=== PATIENT | male | born 1995 | race Caucasian/White ===

== ENCOUNTER 2019-12-16 12:52 | Inpatient (IN) | payer OTHER ==
[2019-12-16] MEDS ORDERED: Ondansetron 4 MG Tab.DIS PO ONE (13:12)
--- NOTE | 2019-12-16 13:34 | EDM.PDOCBH ---
ED HPI GENERAL MEDICAL PROBLEM - General Chief Complaint: Behavioral/Psych Stated Complaint: [facility] Time Seen by Provider: 12/16/19 13:01 Source of Information: Reports: Patient, EMS History Limitations: Reports: No Limitations - History of Present Illness INITIAL COMMENTS - FREE TEXT/NARRATIVE: The patient presents by [facility] for an overdose. The patient got into a fight with his girlfriend and he said he was being dramatic and took some ibuprofen. He thinks he took about 10 to 15 pills. He denies trying to commit suicide. He knows ibuprofen in that amount does not kill you. It will just upset your stomach. He did try this about 6 months ago. He has been depressed lately. He is not on any medications and he admits that if he were prescribed anything he may not take it. He is admit to being defiant. He has a daughter with his girlfriend and she is . He has no other complaints such as fever, chills, cough, congestion, runny nose, chest pain, abdominal pain , nausea and vomiting. Onset: Sudden Duration: Minutes: Severity: Moderate Improves with: Reports: None Worsens with: Reports: None Associated Symptoms: Reports: No Other Symptoms - Related Data Allergies Allergy/AdvReac Type Severity Reaction Status Date / Time No Known Allergies Allergy Verified 12/16/19 13:01 Home Meds: Home Meds . [No Known Home Meds] 12/16/19 [History] Past Medical History - Past Health History Medical/Surgical History: Denies Medical/Surgical History Psychiatric History: Reports: Depression Social & Family History - Tobacco Use Smoking Status *Q: Current Some Day Smoker Years of Tobacco use: 5 Packs/Tins Daily: 0.1 - Recreational Drug Use Recreational Drug Use: Yes Recreational Drug Type: Reports: Marijuana/Hashish Recreational Drug Use Frequency: Socially ED ROS GENERAL - Review of Systems Review Of Systems: See Below Constitutional: Reports: No Symptoms HEENT: Reports: No Symptoms Respiratory: Reports: No Symptoms Cardiovascular: Reports: No Symptoms Endocrine: Reports: No Symptoms GI/Abdominal: Reports: No Symptoms : Reports: No Symptoms Musculoskeletal: Reports: No Symptoms ED EXAM, BEHAVIORAL HEALTH - Physical Exam Exam: See Below Exam Limited By: No Limitations General Appearance: Alert, No Apparent Distress Ears: Normal External Exam Nose: Normal Inspection Head: Atraumatic, Normocephalic Neck: Normal Inspection Respiratory/Chest: No Respiratory Distress, Lungs Clear, Normal Breath Sounds Cardiovascular: Regular Rate, Rhythm, No Edema, No Murmur GI/Abdominal: Soft, Non-Tender, No Organomegaly, No Mass Back Exam: Normal Inspection Extremities: Normal Inspection COURSE, BEHAVIORAL HEALTH COMP - Course Vital Signs: Last Vital Signs Temp 97.6 F 12/16/19 13:01 Pulse 92 12/16/19 13:01 Resp 16 12/16/19 13:01 BP 124/75 12/16/19 13:01 Pulse Ox 100 12/16/19 13:01 Orders, Labs, Meds: Active Orders 24 hr Category Date Time Status Cardiac Monitoring [RC] . DIRECTED Care 12/16/19 13:09 Active Peripheral IV Care [RC] . DIRECTED Care 12/16/19 13:58 Active RT Aerosol Therapy [RC] ASDIRECTED Care 12/16/19 17:05 Active Sodium Chloride 0.9% [Saline Flush] Med 12/16/19 13:58 Active 10 ml FLUSH ASDIRECTED PRN Peripheral IV Insertion Adult [OM.PC] Routine Oth 12/16/19 13:58 Ordered Medication Orders Sodium Chloride (Saline Flush) 10 ml FLUSH ASDIRECTED PRN PRN Reason: Keep Vein Open Last Admin: 12/16/19 14:20 Dose: 10 ml Laboratory Tests 12/16/19 12/16/19 12/16/19 Range/Units 13:20 13:20 13:20 WBC 5.90 (4.23-9.07) K/mm3 RBC 5.31 (4.63-6.08) M/mm3 Hgb 15.7 (13.7-17.5) gm/dl Hct 44.8 (40.1-51.0) % MCV 84.4 (79.0-92.2) fl MCH 29.6 (25.7-32.2) pg MCHC 35.0 (32.2-35.5) g/dl RDW Std Deviation 40.9 (35.1-43.9) fL Plt Count 211 (163-337) K/mm3 MPV 9.0 L (9.4-12.3) fl Neut % (Auto) 37.8 (34.0-67.9) % Lymph % (Auto) 46.9 (21.8-53.1) % [place] % (Auto) 10.2 (5.3-12.2) % Eos % (Auto) 3.9 (0.8-7.0) Baso % (Auto) 1.0 (0.1-1.2) % Neut # (Auto) 2.23 (1.78-5.38) K/mm3 Lymph # (Auto) 2.77 (1.32-3.57) K/mm3 [place] # (Auto) 0.60 (0.30-0.82) K/mm3 Eos # (Auto) 0.23 (0.04-0.54) K/mm3 Baso # (Auto) 0.06 (0.01-0.08) K/mm3 PT (9.7-12.0) SECONDS INR APTT (22-31) SECONDS Sodium 140 (136-145) mEq/L Potassium 3.7 (3.5-5.1) mEq/L Chloride 104 (98-107) mEq/L Carbon Dioxide 26 (21-32) mEq/L Anion Gap 13.7 (5-15) BUN 12 (7-18) mg/dL Creatinine 1.1 (0.7-1.3) mg/dL Est Cr Clr Drug Dosing 99.65 mL/min Estimated GFR (MDRD) > 60 (>60) mL/min BUN/Creatinine Ratio 10.9 L (14-18) Glucose 144 H (74-106) mg/dL Calcium 9.0 (8.5-10.1) mg/dL Total Bilirubin 0.6 (0.2-1.0) mg/dL AST 12 L (15-37) U/L ALT 29 (16-63) U/L Alkaline Phosphatase 57 (46-116) U/L Total Protein 7.2 (6.4-8.2) g/dl Albumin 4.0 (3.4-5.0) g/dl Globulin 3.2 gm/dL Albumin/Globulin Ratio 1.3 (1-2) TSH 3rd Generation 1.536 (0.358-3.74) uIU/mL Salicylates 3.0 (2.8-20) mg/dL Urine Opiates Screen (CNXELX=321) Ur Buprenorphine Scrn (CUTOFF=10) Ur Oxycodone Screen (IMR6RT=584) Urine Methadone Screen (HLR4QN=932) Ur Propoxyphene Screen (FYRKSK=291) Acetaminophen 334 H* (10-30) ug/mL Ur Barbiturates Screen (JMRUUW=669) Ur Tricyclics Screen (JZGJXV=603) Ur Phencyclidine Scrn (CUTOFF=25) Ur Amphetamine Screen (SROTNG=587) U Methamphetamines Scrn (CBNUQE=405) U Benzodiazepines Scrn (XKIJHN=345) U Cocaine Metab Screen (PDKUCZ=857) U Marijuana (THC) Screen (CUTOFF=50) Ethyl Alcohol 0.00 (0.00) gm% 12/16/19 12/16/19 12/16/19 Range/Units 13:50 15:06 16:23 WBC (4.23-9.07) K/mm3 RBC (4.63-6.08) M/mm3 Hgb (13.7-17.5) gm/dl Hct (40.1-51.0) % MCV (79.0-92.2) fl MCH (25.7-32.2) pg MCHC (32.2-35.5) g/dl RDW Std Deviation (35.1-43.9) fL Plt Count (163-337) K/mm3 MPV (9.4-12.3) fl Neut % (Auto) (34.0-67.9) % Lymph % (Auto) (21.8-53.1) % Hopkins % (Auto) (5.3-12.2) % Eos % (Auto) (0.8-7.0) Baso % (Auto) (0.1-1.2) % Neut # (Auto) (1.78-5.38) K/mm3 Lymph # (Auto) (1.32-3.57) K/mm3 Hopkins # (Auto) (0.30-0.82) K/mm3 Eos # (Auto) (0.04-0.54) K/mm3 Baso # (Auto) (0.01-0.08) K/mm3 PT 11.5 (9.7-12.0) SECONDS INR 1.06 APTT 25 (22-31) SECONDS Sodium (136-145) mEq/L Potassium (3.5-5.1) mEq/L Chloride (98-107) mEq/L Carbon Dioxide (21-32) mEq/L Anion Gap (5-15) BUN (7-18) mg/dL Creatinine (0.7-1.3) mg/dL Est Cr Clr Drug Dosing mL/min Estimated GFR (MDRD) (>60) mL/min BUN/Creatinine Ratio (14-18) Glucose (74-106) mg/dL Calcium (8.5-10.1) mg/dL Total Bilirubin (0.2-1.0) mg/dL AST (15-37) U/L ALT (16-63) U/L Alkaline Phosphatase (46-116) U/L Total Protein (6.4-8.2) g/dl Albumin (3.4-5.0) g/dl Globulin gm/dL Albumin/Globulin Ratio (1-2) TSH 3rd Generation (0.358-3.74) uIU/mL Salicylates (2.8-20) mg/dL Urine Opiates Screen Negative (YIWLMC=729) Ur Buprenorphine Scrn Negative (CUTOFF=10) Ur Oxycodone Screen Negative (IOO2YR=250) Urine Methadone Screen Negative (PRV3GS=525) Ur Propoxyphene Screen Negative (DESWOW=755) Acetaminophen 258 H* (10-30) ug/mL Ur Barbiturates Screen Negative (CUIWIU=822) Ur Tricyclics Screen Negative (XZNQVA=443) Ur Phencyclidine Scrn Negative (CUTOFF=25) Ur Amphetamine Screen Negative (CYHJUY=959) U Methamphetamines Scrn Negative (AIMLIR=289) U Benzodiazepines Scrn Negative (VMRRBD=563) U Cocaine Metab Screen Negative (MGOWIG=242) U Marijuana (THC) Screen Presumptive positive H (CUTOFF=50) Ethyl Alcohol (0.00) gm% Medications Generic Name Dose Route Start Last Admin Trade Name Freq PRN Reason Stop Dose Admin Sodium Chloride 10 ml 12/16/19 13:58 12/16/19 14:20 Saline Flush FLUSH 10 ml ASDIRECTED PRN Administration Keep Vein Open Discontinued Medications Generic Name Dose Route Start Last Admin Trade Name Freq PRN Reason Stop Dose Admin Acetylcysteine 10,200 mg 12/16/19 17:03 Acetadote 20% IV 12/16/19 17:04 ONETIME ONE Acetylcysteine 9,520 mg 12/16/19 17:05 Mucomyst 20% PO 12/16/19 17:06 ONETIME ONE Lactated Ringer's 1,000 mls @ 1,000 mls/hr 12/16/19 14:02 12/16/19 14:19 Ringers, Lactated IV 12/16/19 15:01 1,000 mls/hr .BOLUS ONE Administration Metoclopramide HCl 10 mg 12/16/19 14:13 12/16/19 14:19 Reglan IVPUSH 12/16/19 14:14 10 mg ONETIME ONE Administration Ondansetron HCl 4 mg 12/16/19 13:12 12/16/19 13:17 Zofran Odt PO 12/16/19 13:13 4 mg ONETIME ONE Administration Ondansetron HCl 4 mg 12/16/19 18:05 Zofran IVPUSH 12/16/19 18:06 ONETIME ONE Re-Assessment/Re-Exam: I ordered labs and a UDS. After I left the room and got nauseated and vomited. I ordered some zofran 4mg ODT PO. His CBC looks good. His blood sugar is 144. His TSH is normal. His salicylates are normal. His ETOH is 0. His acetaminophen is elevated at 334. I asked the patient again what he took and he thought it was ibuprofen. It obviously is not. I called poison control and they still wanted me to wait 4 hours from ingestion and get an acetaminophen level and then treat if it is greater then 150. The patient had more nausea and vomiting so I ordered reglan 10mg IV. His repeat acetaminophen level was 258. I called poison control back an they wanted me to start treating him. I called Dr Escobedo and he agreed to the admission. I ordered mucomyst 140mg PO. Departure - Departure Time of Disposition: 18:10 Disposition: Admitted As Inpatient 66 Condition: Serious Clinical Impression: Acetaminophen overdose Qualifiers: Encounter type: initial encounter Injury intent: intentional self-harm Qualified Code(s): T39.1X2A - Poisoning by 4-Aminophenol derivatives, intentional self-harm, initial encounter - Discharge Information Referrals: PCP,None [Primary Care Provider] - Forms: ED Department Discharge Sepsis Event Note - Evaluation Sepsis Screening Result: No Definite Risk - Focused Exam Vital Signs: Vital Signs Temp Pulse Resp BP Pulse Ox 12/16/19 13:01 97.6 F 92 16 124/75 100 Date Exam was Performed: 12/16/19 Time Exam was Performed: 18:09 - My Orders Last 24 Hours: My Active Orders 12/16/19 13:09 Cardiac Monitoring [RC] . DIRECTED 12/16/19 13:58 Peripheral IV Care [RC] . DIRECTED Sodium Chloride 0.9% [Saline Flush] 10 ml FLUSH ASDIRECTED PRN Peripheral IV Insertion Adult [OM.PC] Routine 12/16/19 17:05 RT Aerosol Therapy [RC] ASDIRECTED - Assessment/Plan Last 24 Hours: My Active Orders 12/16/19 13:09 Cardiac Monitoring [RC] . DIRECTED 12/16/19 13:58 Peripheral IV Care [RC] . DIRECTED Sodium Chloride 0.9% [Saline Flush] 10 ml FLUSH ASDIRECTED PRN Peripheral IV Insertion Adult [OM.PC] Routine 12/16/19 17:05 RT Aerosol Therapy [RC] ASDIRECTED
[2019-12-16 13:56] LABS: ACETAMINOPHEN 334 ug/mL (10-30)
[2019-12-16] MEDS ORDERED: Sodium Chloride 0.9% 10 ML Syringe FLUSH PRN (13:58)
[2019-12-16] MEDS ORDERED: Lactated Ringers 1,000 ML IV ONE (14:02)
[2019-12-16] MEDS ORDERED: Metoclopramide 10 MG/2 ML SDV IVPUSH ONE (14:13)
[2019-12-16] MEDS ORDERED: Acetylcysteine 20% 200 MG/ML 30 ML SDV IV ONE ×3 (17:03→19:59)
[2019-12-16] MEDS ORDERED: Ondansetron 4 MG/2 ML SDV IVPUSH ONE (18:05)
[2019-12-16] MEDS ORDERED: SODIUM CHLORIDE 0.9% IV ONE ×2 (18:45→20:15)
[2019-12-16] MEDS ORDERED: ACETYLCYSTEINE IV ONE ×2 (18:45→20:15)
[2019-12-16] MEDS: Acetylcysteine 20% 200 MG/ML 30 ML Nebulizer Soln SDV PO ONE ×2 (18:52→19:00)
--- NOTE | 2019-12-16 20:25 | PCM.HP.2 ---
H&P History of Present Illness - General Date of Service: 12/16/19 Admit Problem/Dx: Admission Diagnosis/Problem Admission Diagnosis/Problem Acetaminophen overdose History Limitations: Reports: Other (Vomiting) - History of Present Illness Initial Comments - Free Text/Narative: 24-year-old male was brought in by [facility] after taking approximately 10-15 acetaminophen tablets. Patient's girlfriend was going to leave him so he took "too much Tylenol." When I asked him directly if he wanted to kill himself he said "at the time I took it I did ", but he does not want to now. Patient states he has been depressed recently. He told the emergency room physician that when he got in a fight with his girlfriend he was trying to be traumatic and thought he took ibuprofen, because he knows it will not kill you just give you an upset stomach. He did something like this 6 months ago. Patient is not on any medication and states he would not take medication for depression if prescribed. Patient states he started vomiting at approximately 1300 hrs. He also complains of abdominal pain. - Related Data Allergies/Adverse Reactions: Allergies Allergy/AdvReac Type Severity Reaction Status Date / Time No Known Allergies Allergy Verified 12/16/19 13:01 Home Medications: Home Meds . [No Known Home Meds] 12/16/19 [History] Past Medical History - Past Health History Medical/Surgical History: Denies Medical/Surgical History Psychiatric History: Reports: Depression Social & Family History - Tobacco Use Smoking Status *Q: Current Some Day Smoker Years of Tobacco use: 5 Packs/Tins Daily: 0.1 - Recreational Drug Use Recreational Drug Use: Yes Recreational Drug Type: Reports: Marijuana/Hashish Recreational Drug Use Frequency: Socially H&P Review of Systems - Review of Systems: Review Of Systems: Comprehensive ROS is negative, except as noted in HPI. Exam - Exam Exam: See Below - Vital Signs Vital Signs: Last Vital Signs Temp 97.6 F 12/16/19 13:01 Pulse 92 12/16/19 13:01 Resp 16 12/16/19 13:01 BP 124/75 12/16/19 13:01 Pulse Ox 100 12/16/19 13:01 Weight: 150 lb - Exam General: Alert, Oriented, 4 HEENT: Conjunctiva Clear, Hearing Intact, Mucosa Moist & [place] Neck: Supple, Trachea Midline, 2 Lungs: Clear to Auscultation, Normal Respiratory Effort Cardiovascular: Regular Rate, Regular Rhythm GI/Abdominal Exam: No Distention, Tender (Epigastric), Abnormal Bowel Sounds ( Unable to hear bowel sounds secondary to vomiting). No: Guarding, Rigid, Rebound Extremities: Normal Inspection, Normal Range of Motion, Non-Tender, No Pedal Edema, Normal Capillary Refill Skin: Warm, Dry, Intact Neuro Extensive - Mental Status: Alert, Oriented x3, Normal Mood/Affect, Normal Cognition Psychiatric: Alert, Anxious - Patient Data Lab Results Last 24 hrs: Laboratory Results - last 24 hr 12/16/19 12/16/19 12/16/19 Range/Units 13:20 13:20 13:20 WBC 5.90 (4.23-9.07) K/mm3 RBC 5.31 (4.63-6.08) M/mm3 Hgb 15.7 (13.7-17.5) gm/dl Hct 44.8 (40.1-51.0) % MCV 84.4 (79.0-92.2) fl MCH 29.6 (25.7-32.2) pg MCHC 35.0 (32.2-35.5) g/dl RDW Std Deviation 40.9 (35.1-43.9) fL Plt Count 211 (163-337) K/mm3 MPV 9.0 L (9.4-12.3) fl Neut % (Auto) 37.8 (34.0-67.9) % Lymph % (Auto) 46.9 (21.8-53.1) % Major % (Auto) 10.2 (5.3-12.2) % Eos % (Auto) 3.9 (0.8-7.0) Baso % (Auto) 1.0 (0.1-1.2) % Neut # (Auto) 2.23 (1.78-5.38) K/mm3 Lymph # (Auto) 2.77 (1.32-3.57) K/mm3 Major # (Auto) 0.60 (0.30-0.82) K/mm3 Eos # (Auto) 0.23 (0.04-0.54) K/mm3 Baso # (Auto) 0.06 (0.01-0.08) K/mm3 PT (9.7-12.0) SECONDS INR APTT (22-31) SECONDS Sodium 140 (136-145) mEq/L Potassium 3.7 (3.5-5.1) mEq/L Chloride 104 (98-107) mEq/L Carbon Dioxide 26 (21-32) mEq/L Anion Gap 13.7 (5-15) BUN 12 (7-18) mg/dL Creatinine 1.1 (0.7-1.3) mg/dL Est Cr Clr Drug Dosing 99.65 mL/min Estimated GFR (MDRD) > 60 (>60) mL/min BUN/Creatinine Ratio 10.9 L (14-18) Glucose 144 H (74-106) mg/dL Calcium 9.0 (8.5-10.1) mg/dL Total Bilirubin 0.6 (0.2-1.0) mg/dL AST 12 L (15-37) U/L ALT 29 (16-63) U/L Alkaline Phosphatase 57 (46-116) U/L Total Protein 7.2 (6.4-8.2) g/dl Albumin 4.0 (3.4-5.0) g/dl Globulin 3.2 gm/dL Albumin/Globulin Ratio 1.3 (1-2) TSH 3rd Generation 1.536 (0.358-3.74) uIU/mL Salicylates 3.0 (2.8-20) mg/dL Urine Opiates Screen (XUBTHJ=405) Ur Buprenorphine Scrn (CUTOFF=10) Ur Oxycodone Screen (PCU1RV=775) Urine Methadone Screen (QBL0RQ=525) Ur Propoxyphene Screen (AALOSF=652) Acetaminophen 334 H* (10-30) ug/mL Ur Barbiturates Screen (DWCSBW=150) Ur Tricyclics Screen (JEDMMH=224) Ur Phencyclidine Scrn (CUTOFF=25) Ur Amphetamine Screen (YPJQTO=978) U Methamphetamines Scrn (AVMHJF=391) U Benzodiazepines Scrn (ICDGDR=183) U Cocaine Metab Screen (PXEESA=330) U Marijuana (THC) Screen (CUTOFF=50) Ethyl Alcohol 0.00 (0.00) gm% 12/16/19 12/16/19 12/16/19 Range/Units 13:50 15:06 16:23 WBC (4.23-9.07) K/mm3 RBC (4.63-6.08) M/mm3 Hgb (13.7-17.5) gm/dl Hct (40.1-51.0) % MCV (79.0-92.2) fl MCH (25.7-32.2) pg MCHC (32.2-35.5) g/dl RDW Std Deviation (35.1-43.9) fL Plt Count (163-337) K/mm3 MPV (9.4-12.3) fl Neut % (Auto) (34.0-67.9) % Lymph % (Auto) (21.8-53.1) % Major % (Auto) (5.3-12.2) % Eos % (Auto) (0.8-7.0) Baso % (Auto) (0.1-1.2) % Neut # (Auto) (1.78-5.38) K/mm3 Lymph # (Auto) (1.32-3.57) K/mm3 Major # (Auto) (0.30-0.82) K/mm3 Eos # (Auto) (0.04-0.54) K/mm3 Baso # (Auto) (0.01-0.08) K/mm3 PT 11.5 (9.7-12.0) SECONDS INR 1.06 APTT 25 (22-31) SECONDS Sodium (136-145) mEq/L Potassium (3.5-5.1) mEq/L Chloride (98-107) mEq/L Carbon Dioxide (21-32) mEq/L Anion Gap (5-15) BUN (7-18) mg/dL Creatinine (0.7-1.3) mg/dL Est Cr Clr Drug Dosing mL/min Estimated GFR (MDRD) (>60) mL/min BUN/Creatinine Ratio (14-18) Glucose (74-106) mg/dL Calcium (8.5-10.1) mg/dL Total Bilirubin (0.2-1.0) mg/dL AST (15-37) U/L ALT (16-63) U/L Alkaline Phosphatase (46-116) U/L Total Protein (6.4-8.2) g/dl Albumin (3.4-5.0) g/dl Globulin gm/dL Albumin/Globulin Ratio (1-2) TSH 3rd Generation (0.358-3.74) uIU/mL Salicylates (2.8-20) mg/dL Urine Opiates Screen Negative (SLTYLU=898) Ur Buprenorphine Scrn Negative (CUTOFF=10) Ur Oxycodone Screen Negative (AWI4EX=680) Urine Methadone Screen Negative (KIB2CX=230) Ur Propoxyphene Screen Negative (PHMVGH=524) Acetaminophen 258 H* (10-30) ug/mL Ur Barbiturates Screen Negative (MCOZLQ=484) Ur Tricyclics Screen Negative (VGOFZV=936) Ur Phencyclidine Scrn Negative (CUTOFF=25) Ur Amphetamine Screen Negative (YFUDJQ=745) U Methamphetamines Scrn Negative (ZEINLH=968) U Benzodiazepines Scrn Negative (GTHQPN=943) U Cocaine Metab Screen Negative (XPXFRX=626) U Marijuana (THC) Screen Presumptive positive H (CUTOFF=50) Ethyl Alcohol (0.00) gm% Result Diagrams: 12/16/19 13:20 12/16/19 13:20 Sepsis Event Note - Evaluation Sepsis Screening Result: No Definite Risk - Focused Exam Vital Signs: Vital Signs Temp Pulse Resp BP Pulse Ox 12/16/19 13:01 97.6 F 92 16 124/75 100 Date Exam was Performed: 12/16/19 Time Exam was Performed: 20:19 Problem List Initiated/Reviewed/Updated: Yes Orders Last 24hrs: Active Orders 24 hr Category Date Time Status Admission Status [Patient Status] [ADT] Routine ADT 12/16/19 19:23 Active Cardiac Monitoring [RC] . DIRECTED Care 12/16/19 13:09 Active Notify Provider Consults [RC] ASDIRECTED Care 12/16/19 20:11 Ordered Oxygen Therapy [RC] PRN Care 12/16/19 20:05 Ordered Peripheral IV Care [RC] . DIRECTED Care 12/16/19 13:58 Active RT Aerosol Therapy [RC] ASDIRECTED Care 12/16/19 17:05 Active Up ad Katina [RC] ASDIRECTED Care 12/16/19 20:05 Ordered VTE/DVT Education [RC] PER UNIT ROUTINE Care 12/16/19 20:05 Ordered Vital Signs [RC] Q4H Care 12/16/19 20:05 Ordered Consult to Physician [CONS] Routine Cons 12/16/19 20:05 Ordered Regular Diet [DIET] Diet 12/17/19 Breakfast Ordered ACETAMINOPHEN [CHEM] Urgent Lab 12/17/19 13:00 Ordered HEPATIC FUNCTION PANEL,HFP [CHEM] Timed Lab 12/17/19 13:00 Ordered INR,PT,PROTHROMBIN TIME [COAG] Timed Lab 12/17/19 13:00 Ordered Acetylcysteine [Acetadote 20%] Med 12/17/19 02:00 Once 6,800 mg IV ONETIME ONE Acetylcysteine [Acetadote 20%] 3,400 mg Med 12/16/19 20:15 Active Sodium Chloride 0.9% [Normal Saline] 500 ml IV ONETIME Metoclopramide [Reglan] Med 12/16/19 20:05 Ordered 10 mg IVPUSH Q6H PRN Ondansetron [Zofran] Med 12/16/19 20:05 Ordered 4 mg IV Q4H PRN Ondansetron [Zofran] Med 12/17/19 00:01 Ordered 4 mg IVPUSH Q6H PRN Sodium Chloride 0.9% [Saline Flush] Med 12/16/19 13:58 Active 10 ml FLUSH ASDIRECTED PRN Peripheral IV Insertion Adult [OM.PC] Routine Oth 12/16/19 13:58 Ordered Resuscitation Status Routine Resus Stat 12/16/19 20:05 Ordered Medication Orders Acetylcysteine (Acetadote 20%) 6,800 mg IV ONETIME ONE Stop: 12/17/19 02:01 Acetylcysteine 3,400 mg/ (Sodium Chloride) 517 mls @ 129.25 mls/hr IV ONETIME ONE Stop: 12/17/19 00:14 Metoclopramide HCl (Reglan) 10 mg IVPUSH Q6H PRN PRN Reason: Nausea/Vomiting Ondansetron HCl (Zofran) 4 mg IV Q4H PRN PRN Reason: Nausea/Vomiting Ondansetron HCl (Zofran) 4 mg IVPUSH Q6H PRN PRN Reason: Nausea/Vomiting Sodium Chloride (Saline Flush) 10 ml FLUSH ASDIRECTED PRN PRN Reason: Keep Vein Open Last Admin: 12/16/19 14:20 Dose: 10 ml Assessment/Plan Comment:: Assessment 24-year-old male with acetaminophen overdose and toxicity * Patient reports he took 10-15 acetaminophen tablets * Acetaminophen level 334 on arrival and 4 hours later 258 * Normal LFTs: AST 12, ALT 29, alkaline phosphatase 57, total bilirubin 0.6, INR 1.06 * Poison control contacted N-acetylcysteine * N-acetylcysteine 150 mg/kg over 1 hour started in the emergency department. Total dose 10,200 mg * Patient stated that at the time he took the pills he wanted to * Urine drug screen positive for marijuana Abdominal pain and nausea and vomiting * Patient states he developed nausea and vomiting about an hour after taking the acetaminophen Suicide attempt * Patient admitted to [facility], but not the emergency room physician at the time he took the acetaminophen he wanted to * Patient states he does not want to now. * States he has been depressed lately Plan * Admit to floor with one-on-one nursing * N-acetylcysteine 3 bag protocol. First bag, started in the emergency department, 150 mg/kg over 1 hour, second bag 50 mg/kg over 4 hours, third bag 100 mg/kg over 16 hours. * Recheck LFTs, INR, acetaminophen level in 16 to 18 hours. * If INR is greater than 1.3 or acetaminophen is greater than 10 then repeat bag 3. * Reglan and ondansetron for nausea and vomiting * Consult Dr. Denson and psychiatry * VTE prophylaxis not indicated * CODE STATUS: Full code * Length of stay will be dependent on recommendations from Dr. Denson. - Mortality Measure Prognosis:: Good
[2019-12-16] MEDS: Metoclopramide 10 MG/2 ML SDV IVPUSH PRN (20:55)
[2019-12-17] MEDS ORDERED: Ondansetron 4 MG/2 ML SDV IVPUSH PRN (00:01)
[2019-12-17] MEDS ORDERED: ACETYLCYSTEINE IV ONE ×2 (00:15→16:30)
[2019-12-17] MEDS ORDERED: SODIUM CHLORIDE 0.9% IV ONE ×2 (00:15→16:30)
[2019-12-17] MEDS: Ondansetron 4 MG/2 ML SDV IV PRN (00:37)
[2019-12-17] MEDS ORDERED: Acetylcysteine 20% 200 MG/ML 30 ML SDV IV ONE ×2 (02:00→16:07)
[2019-12-17] MEDS: Metoclopramide 10 MG/2 ML SDV IVPUSH PRN (05:03)
[2019-12-17] MEDS: Dextrose 5%-0.45% NaCl 1,000 ML IV SCH ×2 (06:37→17:11)
[2019-12-17] MEDS: Nicotine 21 MG/24 Hr Patch TRDERM SCH (12:39)
[2019-12-18] MEDS: Metoclopramide 10 MG/2 ML SDV IVPUSH PRN ×3 (01:05→18:13)
[2019-12-18] MEDS: Dextrose 5%-0.45% NaCl 1,000 ML IV SCH ×3 (03:08→23:05)
[2019-12-18] MEDS: Ondansetron 4 MG/2 ML SDV IV PRN ×4 (03:09→23:07)
[2019-12-18] MEDS ORDERED: SODIUM CHLORIDE 0.9% IV ONE (08:30)
[2019-12-18] MEDS ORDERED: ACETYLCYSTEINE IV ONE (08:30)
[2019-12-18] MEDS: Nicotine 21 MG/24 Hr Patch TRDERM SCH (09:12)
--- NOTE | 2019-12-18 09:16 | PCM.PN ---
- General Info Date of Service: 12/18/19 Admission Dx/Problem (Free Text): Admission Diagnosis/Problem Admission Diagnosis/Problem Acetaminophen overdose Functional Status: Reports: Pain Controlled, Tolerating Diet, Ambulating, Urinating. Denies: New Symptoms - Review of Systems General: Reports: No Symptoms. Denies: Fever, Weakness, Fatigue, Malaise, Chills HEENT: Reports: No Symptoms. Denies: Headaches, Sore Throat Pulmonary: Reports: No Symptoms. Denies: Shortness of Breath, Pleuritic Chest Pain, Cough, Sputum, Wheezing Cardiovascular: Reports: No Symptoms. Denies: Chest Pain, Palpitations, Dyspnea on Exertion, Edema Gastrointestinal: Reports: No Symptoms. Denies: Abdominal Pain, Constipation, Diarrhea, Nausea, Vomiting Genitourinary: Reports: No Symptoms. Denies: Pain Musculoskeletal: Reports: No Symptoms Skin: Reports: No Symptoms. Denies: Cyanosis Neurological: Reports: No Symptoms. Denies: Confusion, Weakness Psychiatric: Reports: No Symptoms - Patient Data Vitals - Most Recent: Last Vital Signs Temp 97.9 F 12/18/19 08:08 Pulse 52 L 12/18/19 08:08 Resp 20 12/18/19 08:08 BP 134/78 12/18/19 08:08 Pulse Ox 98 12/18/19 08:08 Weight - Most Recent: 152 lb 1.6 oz I&O - Last 24 Hours: Intake & Output 12/17/19 12/18/19 12/18/19 22:59 06:59 14:59 Intake Total 2530 2215 Output Total 650 1400 Balance 1880 815 Lab Results Last 24 Hours: Laboratory Results - last 24 hr 12/17/19 12/17/19 12/17/19 Range/Units 15:09 15:09 15:09 PT 15.3 H D (9.7-12.0) SECONDS INR 1.43 Sodium (136-145) mEq/L Potassium (3.5-5.1) mEq/L Chloride (98-107) mEq/L Carbon Dioxide (21-32) mEq/L Anion Gap (5-15) BUN (7-18) mg/dL Creatinine (0.7-1.3) mg/dL Est Cr Clr Drug Dosing mL/min Estimated GFR (MDRD) (>60) mL/min BUN/Creatinine Ratio (14-18) Glucose (74-106) mg/dL Calcium (8.5-10.1) mg/dL Total Bilirubin 0.5 (0.2-1.0) mg/dL Direct Bilirubin 0.10 (0.0-0.2) mg/dl Indirect Bilirubin 0.40 AST 27 (15-37) U/L ALT 73 H (16-63) U/L Alkaline Phosphatase 47 (46-116) U/L Total Protein 6.6 (6.4-8.2) g/dl Albumin 3.5 (3.4-5.0) g/dl Globulin 3.1 gm/dL Albumin/Globulin Ratio 1.1 (1-2) Acetaminophen 3 L (10-30) ug/mL 12/18/19 12/18/19 Range/Units 03:00 03:00 PT 14.5 H (9.7-12.0) SECONDS INR 1.35 Sodium 141 (136-145) mEq/L Potassium 3.4 L (3.5-5.1) mEq/L Chloride 107 (98-107) mEq/L Carbon Dioxide 24 (21-32) mEq/L Anion Gap 13.4 (5-15) BUN 7 (7-18) mg/dL Creatinine 0.9 (0.7-1.3) mg/dL Est Cr Clr Drug Dosing 123.50 mL/min Estimated GFR (MDRD) > 60 (>60) mL/min BUN/Creatinine Ratio 7.8 L (14-18) Glucose 134 H (74-106) mg/dL Calcium 8.3 L (8.5-10.1) mg/dL Total Bilirubin 0.7 (0.2-1.0) mg/dL Direct Bilirubin (0.0-0.2) mg/dl Indirect Bilirubin AST 82 H (15-37) U/L ALT 126 H (16-63) U/L Alkaline Phosphatase 47 (46-116) U/L Total Protein 6.4 (6.4-8.2) g/dl Albumin 3.4 (3.4-5.0) g/dl Globulin 3.0 gm/dL Albumin/Globulin Ratio 1.1 (1-2) Acetaminophen (10-30) ug/mL Med Orders - Current: Current Medications Dextrose/Sodium Chloride (Dextrose 5%-1/2 Ns) 1,000 mls @ 100 mls/hr IV ASDIRECTED [facility] Last Admin: 12/18/19 03:08 Dose: 100 mls/hr Acetylcysteine 6,800 mg/ (Sodium Chloride) 1,034 mls @ 64.625 mls/hr IV ONETIME ONE Stop: 12/19/19 00:29 Metoclopramide HCl (Reglan) 10 mg IVPUSH Q6H PRN PRN Reason: Nausea/Vomiting Last Admin: 12/18/19 01:05 Dose: 10 mg Miscellaneous Information (Remove Patch) 1 ea TRDERM DAILY [facility] Nicotine (Habitrol) 21 mg TRDERM DAILY [facility] Last Admin: 12/18/19 09:12 Dose: Not Given Ondansetron HCl (Zofran) 4 mg IV Q4H PRN PRN Reason: Nausea/Vomiting Last Admin: 12/18/19 03:09 Dose: 4 mg Ondansetron HCl (Zofran) 4 mg IVPUSH Q6H PRN PRN Reason: Nausea/Vomiting Sodium Chloride (Saline Flush) 10 ml FLUSH ASDIRECTED PRN PRN Reason: Keep Vein Open Last Admin: 12/16/19 14:20 Dose: 10 ml Discontinued Medications Acetylcysteine (Acetadote 20%) 10,200 mg IV ONETIME ONE Stop: 12/16/19 17:04 Acetylcysteine (Mucomyst 20%) 9,520 mg PO ONETIME ONE Stop: 12/16/19 17:06 Last Admin: 12/16/19 19:00 Dose: Not Given Acetylcysteine (Acetadote 20%) 10,200 mg IV ONETIME ONE Stop: 12/16/19 18:30 Acetylcysteine (Acetadote 20%) 6,800 mg IV ONETIME ONE Stop: 12/17/19 16:08 Lactated Ringer's (Ringers, Lactated) 1,000 mls @ 1,000 mls/hr IV .BOLUS ONE Stop: 12/16/19 15:01 Last Admin: 12/16/19 14:19 Dose: 1,000 mls/hr Acetylcysteine 10,200 mg/ (Sodium Chloride) 251 mls @ 251 mls/hr IV ONETIME ONE Stop: 12/16/19 19:44 Last Admin: 12/16/19 19:01 Dose: 251 mls/hr Acetylcysteine 3,400 mg/ (Sodium Chloride) 517 mls @ 129.25 mls/hr IV ONETIME ONE Stop: 12/17/19 00:14 Last Admin: 12/16/19 20:54 Dose: 129.25 mls/hr Acetylcysteine 6,800 mg/ (Sodium Chloride) 1,034 mls @ 64.625 mls/hr IV ONETIME ONE Stop: 12/17/19 16:14 Last Admin: 12/17/19 00:45 Dose: 64.625 mls/hr Acetylcysteine 6,800 mg/ (Sodium Chloride) 1,034 mls @ 64.625 mls/hr IV ONETIME ONE Stop: 12/18/19 08:29 Last Admin: 12/17/19 17:48 Dose: 64.625 mls/hr Metoclopramide HCl (Reglan) 10 mg IVPUSH ONETIME ONE Stop: 12/16/19 14:14 Last Admin: 12/16/19 14:19 Dose: 10 mg Ondansetron HCl (Zofran Odt) 4 mg PO ONETIME ONE Stop: 12/16/19 13:13 Last Admin: 12/16/19 13:17 Dose: 4 mg Ondansetron HCl (Zofran) 4 mg IVPUSH ONETIME ONE Stop: 12/16/19 18:06 Last Admin: 12/16/19 18:14 Dose: 4 mg - Exam Quality Assessment: DVT Prophylaxis General: Alert, Oriented, Cooperative, No Acute Distress HEENT: Pupils Equal, Pupils Reactive, Mucous Membr. Moist/[place] Neck: Supple, Trachea Midline, No JVD Lungs: Clear to Auscultation, Normal Respiratory Effort Cardiovascular: Regular Rate, Regular Rhythm GI/Abdominal Exam: Normal Bowel Sounds, Soft, Non-Tender, No Distention (Male) Exam: Deferred Back Exam: Normal Inspection, Full Range of Motion Extremities: Normal Inspection, Normal Range of Motion, Non-Tender, No Pedal Edema, Normal Capillary Refill Peripheral Pulses: 4+: Radial (L), Radial (R), Dorsalis Pedis (L), Dorsalis Pedis (R) Skin: Warm, Dry, Intact Neurological: No New Focal Deficit Psy/Mental Status: Alert, Anxious Sepsis Event Note - Evaluation Sepsis Screening Result: No Definite Risk - Focused Exam Vital Signs: Vital Signs Temp Pulse Resp BP Pulse Ox 12/18/19 08:08 97.9 F 52 L 20 134/78 98 12/18/19 03:03 72 98 12/18/19 03:02 98.6 F 59 L 12 138/90 87 L 12/17/19 23:31 98.4 F 55 L 12 132/73 97 Date Exam was Performed: 12/18/19 Time Exam was Performed: 11:02 - Problem List & Annotations (1) Suicide attempt by acetaminophen overdose SNOMED Code(s): 897387534, 328777212 Code(s): T39.1X2A - POISONING BY 4-AMINOPHENOL DERIVATIVES, SELF-HARM, INIT Status: Acute Priority: High Current Visit: Yes Qualifiers: Encounter type: initial encounter Qualified Code(s): T39.1X2A - Poisoning by 4-Aminophenol derivatives, intentional self-harm, initial encounter (2) Acetaminophen overdose SNOMED Code(s): 242408939 Code(s): T39.1X1A - POISONING BY 4-AMINOPHENOL DERIVATIVES, ACCIDENTAL, INIT Status: Acute Priority: High Current Visit: Yes Qualifiers: Encounter type: initial encounter Injury intent: intentional self-harm Qualified Code(s): T39.1X2A - Poisoning by 4-Aminophenol derivatives, intentional self-harm, initial encounter (3) Elevated INR SNOMED Code(s): 199480331 Code(s): R79.1 - ABNORMAL COAGULATION PROFILE Status: Acute Priority: High Current Visit: Yes (4) Transaminitis SNOMED Code(s): 951736158, 116213148 Code(s): R74.0 - NONSPEC ELEV OF LEVELS OF TRANSAMNS & LACTIC ACID DEHYDRGNSE Status: Acute Priority: High Current Visit: Yes - Problem List Review Problem List Initiated/Reviewed/Updated: Yes - Plan Plan:: Admission Assessment 24-year-old male with acetaminophen overdose and toxicity * Patient reports he took 10-15 acetaminophen tablets * Acetaminophen level 334 on arrival and 4 hours later 258 * Normal LFTs: AST 12, ALT 29, alkaline phosphatase 57, total bilirubin 0.6, INR 1.06 * Poison control contacted N-acetylcysteine * N-acetylcysteine 150 mg/kg over 1 hour started in the emergency department. Total dose 10,200 mg * Patient stated that at the time he took the pills he wanted to * Urine drug screen positive for marijuana Abdominal pain and nausea and vomiting * Patient states he developed nausea and vomiting about an hour after taking the acetaminophen Suicide attempt * Patient admitted to me, but not the emergency room physician at the time he took the acetaminophen he wanted to * Patient states he does not want to now. * States he has been depressed lately Day 1 * INR, AST, ALT elevated * Poison control recommends another bag of N-acetylcysteine * Poison control recommends re-check Alanine aminotransferase, Aspartate aminotransferase and PT/INR * Dr. Denson, psychiatry consult scheduled for today * 1:1 nursing care with suicide precautions * Nausea and vomiting has now resolved Plan * Admit to floor with one-on-one nursing * N-acetylcysteine 3 bag protocol given. First bag, started in the emergency department, 150 mg/kg over 1 hour, second bag 50 mg/kg over 4 hours, third bag 100 mg/kg over 16 hours. Poison control now recommending another bag. * Recheck labs as suggested by poison control * If INR is greater than 1.3 or acetaminophen is greater than 10 then repeat bag 3. * Reglan and ondansetron for nausea and vomiting * Consult Dr. Denson and psychiatry * VTE prophylaxis not indicated * CODE STATUS: Full code * Length of stay will be dependent on recommendations from Dr. Denson.
[2019-12-18] MEDS: Topiramate 25 MG Tab PO SCH (13:40)
[2019-12-18] MEDS ORDERED: Potassium Chloride 20 MEQ Tab.ER PO ONE (14:54)
--- NOTE | 2019-12-18 15:59 | CONS ---
CONSULTING PHYSICIAN: Severiano Denson MD DATE OF CONSULTATION: 12/18/2019 Site where the services are provided is [facility] in [place], [place]. Site where the services are provided from our offices in [facility]. Length of service for this 60-minute inpatient telemedicine event is 60 minutes. IDENTIFICATION: The patient is a 24-year-old male who is admitted to the inpatient med/surg unit at [facility] in [place], [place]. He is seen for psychiatric consultation per the request of staff attending Dr. Escobedo and his treatment team. CHIEF COMPLAINT: "It was a suicide attempt I guess." HISTORY OF PRESENT ILLNESS: The patient is a 24-year-old male who was admitted to the inpatient med/surg unit on 12/16/2019 status post Tylenol overdose after having argument and fight with his long-time girlfriend. The patient states "she was going to leave," and he states he did want to be without her and her 2-year-old daughter. He states also that he has another son on the way as his girlfriend is currently . He states that the reason they are having arguments is "I am cheater." He states he has been working on trying to stay faithful, and he sometimes does a better job of staying faithful than at other times, and he states that another reason that he has problems is that he gets pretty garcia and irritable and has a lot of anxiety. He states he is under a lot of stress at his job at [employer]. He was recently promoted, and he states the new position "has a lot of stress" accompanied, and he was supposed to go to training, but that was canceled "because of the COVID-19" pandemic that is sweeping the country right now. The patient states he gets depressed over his relationship, but he denies being suicidal or homicidal at this point in time, and he is marin for safety and denies any psychotic, delusional, or paranoid symptoms. He denies having any guns at home, and he denies any illicit substance use or excessive alcohol use complicating his clinical picture. He states "I had a positive marijuana test, but I wasn't smoking, I think it was just because I was around one of my friends who smokes it a lot." He reports racing thoughts or ruminations, and he states that he wants to do better and so far is keeping his family together, and he is open to trying psychiatric medications if that will help. It is just that he has never tried any before, and he has a little bit of trepidation at the prospect of being on medications. MEDICATIONS: At time of presentation, none. ALLERGIES: No known drug allergies. PAST MEDICAL HISTORY: The patient denies. REVIEW OF SYSTEMS: Negative for any acute difficulties or complications currently with his GI, , pulmonary, cardiac, endocrine, blood, immune, skin, musculoskeletal, nervous systems. FAMILY PSYCHIATRIC AND CD HISTORY: The patient denies. PAST PSYCHIATRIC AND CD HISTORY: The patient denies any previous psychiatric hospitalizations. He reports 1 court-ordered CD treatment for marijuana use in . He is vaping about a third cartridge of nicotine per day. He denies any prior suicide attempts, although staff is reporting that he may have had a suicide attempt not too long ago under similar circumstances. He denies any self-injurious behaviors. He denies any eating disorder history. Denies any past psychiatric medication history. SOCIAL HISTORY: The patient was born in [facility] and lived out there until about 5 years ago, and he has been living in [place] since that time. He is working at [employer]. He has been in current relationship for 7 years now. His girlfriend is a homemaker, and he and his girlfriend have a 2-year-old daughter and his girlfriend has their son on the way now as she is currently . The patient works at [employer], and he lives in [place] with his girlfriend and daughter. He denies any prior service or any current legal difficulties. He is agnostic in terms of his esther formation. He enjoys video games, playing the drums, writing rap music. MENTAL STATUS EXAM: The patient is a 24-year-old white male in no apparent distress. Speech is of regular rate and rhythm. The patient is cognitively oriented. Psychomotor activity is within normal limits. There is no abnormal motor movements or tics observed. Gait and station are not observed as the patient is lying in bed for the purposes of the inpatient consult. Mood is depressed and frustrated as well as anxious and irritable. Affect is cooperative overall for the purposes of the inpatient consult, somewhat restricted. There is no behavioral or stated evidence of acute suicidal or homicidal ideation or acute psychotic, delusional, or paranoid symptoms. Thought processes are significant for racing thoughts or ruminations. There is no acute manic symptoms or loose associations evident. Judgment and insight appear unimpaired at this point in time. Motivation for help appears good. VITALS: 138/90, 72, 12, 98.6 degrees. IMPRESSION: [place] I: 1. Bipolar affective disease, not otherwise specified, F31.9. 2. Anxiety disorder, not otherwise specified, F41.9. 3. Rule out bipolar affective disease, mixed type. 4. Rule out major depressive disorder. 5. Cannabis abuse versus dependence. [place] II: None. [place] III: Status post Tylenol overdose. [place] IV: Severe. [place] V: 60. PLAN: 1. Begin Topamax 25 mg q.a.m. x7 days, increase to 50 mg q.a.m. to help with mood stability and anxiety reduction. 2. We will consider an antidepressant if need be going forward if the patient has breakthrough symptoms of depression on his Topamax medication. 3. The patient apprised of benefits and side effects of his newly initiated psychiatric medication regimen. He acknowledges understanding of these facts. He has no further questions by the end of the interview session. 4. I recommend that Social Work obtain collateral information regarding circumstances surrounding the patient's presentation, and if everything checks out from a safety standpoint and so far as his girlfriend having come back to the home and there was nothing that the patient was not leaving out in terms of his story, he appears to be safe from a psychiatric standpoint, not a danger to himself or others, and is able to be discharged when medically stable. 5. Also recommend that Social Work check on the patient's medical insurance status as he has medical insurance, to see if there is a possibility of signing him up for medical insurance before discharge. 6. Sobriety. 7. Pastoral guidance. 8. Recommend following up with Outpatient Psychiatry in 2 to 4 weeks to assess his overall function and efficacy of his newly initiated psychiatric medication regimen. 9. We will follow up with the patient sooner if there are any complications in the interim while he remains on the inpatient med/surg unit at [facility]. 10.Crisis plan is in place. MMODAL /[id number]
[2019-12-18] MEDS: Remove Patch*NICOTINE TRDERM SCH (17:21)
[2019-12-19] MEDS ORDERED: SODIUM CHLORIDE 0.9% IV ONE (01:15)
[2019-12-19] MEDS ORDERED: ACETYLCYSTEINE IV ONE (01:15)
--- NOTE | 2019-12-19 07:26 | PCM.PN ---
- General Info Date of Service: 12/19/19 Admission Dx/Problem (Free Text): Admission Diagnosis/Problem Admission Diagnosis/Problem Acetaminophen overdose - Patient Data Vitals - Most Recent: Last Vital Signs Temp 98.4 F 12/19/19 03:32 Pulse 52 L 12/19/19 03:32 Resp 16 12/19/19 03:32 BP 116/62 12/19/19 03:32 Pulse Ox 98 12/19/19 03:32 Weight - Most Recent: 153 lb 4 oz I&O - Last 24 Hours: Intake & Output 12/18/19 12/19/19 12/19/19 22:59 06:59 14:59 Intake Total 2610 2237 Output Total 2150 1600 Balance 460 637 Lab Results Last 24 Hours: Laboratory Results - last 24 hr 12/18/19 12/18/19 Range/Units 23:54 23:54 PT 13.6 H (9.7-12.0) SECONDS INR 1.26 Sodium 141 (136-145) mEq/L Potassium 3.5 (3.5-5.1) mEq/L Chloride 108 H (98-107) mEq/L Carbon Dioxide 25 (21-32) mEq/L Anion Gap 11.5 (5-15) BUN 4 L (7-18) mg/dL Creatinine 0.9 (0.7-1.3) mg/dL Est Cr Clr Drug Dosing 123.50 mL/min Estimated GFR (MDRD) > 60 (>60) mL/min BUN/Creatinine Ratio 4.4 L (14-18) Glucose 110 H (74-106) mg/dL Calcium 8.5 (8.5-10.1) mg/dL Total Bilirubin 0.9 (0.2-1.0) mg/dL AST 87 H (15-37) U/L ALT 228 H (16-63) U/L Alkaline Phosphatase 44 L (46-116) U/L Total Protein 6.1 L (6.4-8.2) g/dl Albumin 3.0 L (3.4-5.0) g/dl Globulin 3.1 gm/dL Albumin/Globulin Ratio 1.0 (1-2) Med Orders - Current: Current Medications Dextrose/Sodium Chloride (Dextrose 5%-1/2 Ns) 1,000 mls @ 100 mls/hr IV ASDIRECTED [facility] Last Admin: 12/18/19 23:05 Dose: 100 mls/hr Acetylcysteine 6,800 mg/ (Sodium Chloride) 1,034 mls @ 64.625 mls/hr IV ONETIME ONE Stop: 12/19/19 17:14 Last Admin: 12/19/19 01:31 Dose: 64.625 mls/hr Metoclopramide HCl (Reglan) 10 mg IVPUSH Q6H PRN PRN Reason: Nausea/Vomiting Last Admin: 12/18/19 18:13 Dose: 10 mg Miscellaneous Information (Remove Patch) 1 ea TRDERM DAILY [facility] Last Admin: 12/18/19 17:21 Dose: Not Given Nicotine (Habitrol) 21 mg TRDERM DAILY [facility] Last Admin: 12/18/19 09:12 Dose: Not Given Ondansetron HCl (Zofran) 4 mg IV Q4H PRN PRN Reason: Nausea/Vomiting Last Admin: 12/18/19 23:07 Dose: 4 mg Ondansetron HCl (Zofran) 4 mg IVPUSH Q6H PRN PRN Reason: Nausea/Vomiting Sodium Chloride (Saline Flush) 10 ml FLUSH ASDIRECTED PRN PRN Reason: Keep Vein Open Last Admin: 12/16/19 14:20 Dose: 10 ml Topiramate (Topamax) 25 mg PO DAILY [facility] Stop: 12/24/19 09:01 Last Admin: 12/18/19 13:40 Dose: 25 mg Topiramate (Topamax) 50 mg PO DAILY [facility] Discontinued Medications Acetylcysteine (Acetadote 20%) 10,200 mg IV ONETIME ONE Stop: 12/16/19 17:04 Acetylcysteine (Mucomyst 20%) 9,520 mg PO ONETIME ONE Stop: 12/16/19 17:06 Last Admin: 12/16/19 19:00 Dose: Not Given Acetylcysteine (Acetadote 20%) 10,200 mg IV ONETIME ONE Stop: 12/16/19 18:30 Acetylcysteine (Acetadote 20%) 6,800 mg IV ONETIME ONE Stop: 12/17/19 16:08 Lactated Ringer's (Ringers, Lactated) 1,000 mls @ 1,000 mls/hr IV .BOLUS ONE Stop: 12/16/19 15:01 Last Admin: 12/16/19 14:19 Dose: 1,000 mls/hr Acetylcysteine 10,200 mg/ (Sodium Chloride) 251 mls @ 251 mls/hr IV ONETIME ONE Stop: 12/16/19 19:44 Last Admin: 12/16/19 19:01 Dose: 251 mls/hr Acetylcysteine 3,400 mg/ (Sodium Chloride) 517 mls @ 129.25 mls/hr IV ONETIME ONE Stop: 12/17/19 00:14 Last Admin: 12/16/19 20:54 Dose: 129.25 mls/hr Acetylcysteine 6,800 mg/ (Sodium Chloride) 1,034 mls @ 64.625 mls/hr IV ONETIME ONE Stop: 12/17/19 16:14 Last Admin: 12/17/19 00:45 Dose: 64.625 mls/hr Acetylcysteine 6,800 mg/ (Sodium Chloride) 1,034 mls @ 64.625 mls/hr IV ONETIME ONE Stop: 12/18/19 08:29 Last Admin: 12/17/19 17:48 Dose: 64.625 mls/hr Acetylcysteine 6,800 mg/ (Sodium Chloride) 1,034 mls @ 64.625 mls/hr IV ONETIME ONE Stop: 12/19/19 00:29 Last Admin: 12/18/19 10:10 Dose: 64.625 mls/hr Metoclopramide HCl (Reglan) 10 mg IVPUSH ONETIME ONE Stop: 12/16/19 14:14 Last Admin: 12/16/19 14:19 Dose: 10 mg Ondansetron HCl (Zofran Odt) 4 mg PO ONETIME ONE Stop: 12/16/19 13:13 Last Admin: 12/16/19 13:17 Dose: 4 mg Ondansetron HCl (Zofran) 4 mg IVPUSH ONETIME ONE Stop: 12/16/19 18:06 Last Admin: 12/16/19 18:14 Dose: 4 mg Potassium Chloride (Klor-Con M20) 40 meq PO ONETIME ONE Stop: 12/18/19 14:55 Last Admin: 12/18/19 16:40 Dose: 40 meq Sepsis Event Note - Evaluation Sepsis Screening Result: No Definite Risk - Focused Exam Vital Signs: Vital Signs Temp Pulse Resp BP Pulse Ox 12/19/19 03:32 98.4 F 52 L 16 116/62 98 12/18/19 22:32 98.1 F 48 L 16 131/65 97 Date Exam was Performed: 12/19/19 Time Exam was Performed: 07:26 - Problem List & Annotations (1) Suicide attempt by acetaminophen overdose SNOMED Code(s): 366318621, 631461673 Code(s): T39.1X2A - POISONING BY 4-AMINOPHENOL DERIVATIVES, SELF-HARM, INIT Status: Acute Priority: High Current Visit: Yes Qualifiers: Encounter type: initial encounter Qualified Code(s): T39.1X2A - Poisoning by 4-Aminophenol derivatives, intentional self-harm, initial encounter (2) Acetaminophen overdose SNOMED Code(s): 624082998 Code(s): T39.1X1A - POISONING BY 4-AMINOPHENOL DERIVATIVES, ACCIDENTAL, INIT Status: Acute Priority: High Current Visit: Yes Qualifiers: Encounter type: initial encounter Injury intent: intentional self-harm Qualified Code(s): T39.1X2A - Poisoning by 4-Aminophenol derivatives, intentional self-harm, initial encounter (3) Elevated INR SNOMED Code(s): 210181777 Code(s): R79.1 - ABNORMAL COAGULATION PROFILE Status: Acute Priority: High Current Visit: Yes (4) Transaminitis SNOMED Code(s): 547131206, 488819840 Code(s): R74.0 - NONSPEC ELEV OF LEVELS OF TRANSAMNS & LACTIC ACID DEHYDRGNSE Status: Acute Priority: High Current Visit: Yes - My Orders Last 24 Hours: My Active Orders 12/18/19 11:14 Precautions [COMM] Routine 12/18/19 12:07 Consult to Spiritual Care [CONS] Routine 12/18/19 12:15 Topiramate [Topamax] 25 mg PO DAILY 12/19/19 08:00 MAGNESIUM [CHEM] Routine 12/25/19 09:00 Topiramate [Topamax] 50 mg PO DAILY - Plan Plan:: Admission Assessment 24-year-old male with acetaminophen overdose and toxicity * Patient reports he took 10-15 acetaminophen tablets * Acetaminophen level 334 on arrival and 4 hours later 258 * Normal LFTs: AST 12, ALT 29, alkaline phosphatase 57, total bilirubin 0.6, INR 1.06 * Poison control contacted N-acetylcysteine * N-acetylcysteine 150 mg/kg over 1 hour started in the emergency department. Total dose 10,200 mg * Patient stated that at the time he took the pills he wanted to * Urine drug screen positive for marijuana Abdominal pain and nausea and vomiting * Patient states he developed nausea and vomiting about an hour after taking the acetaminophen Suicide attempt * Patient admitted to id, but not the emergency room physician at the time he took the acetaminophen he wanted to * Patient states he does not want to now. * States he has been depressed lately Day 1 * INR, AST, ALT elevated * Poison control recommends another bag of N-acetylcysteine * Poison control recommends re-check Alanine aminotransferase, Aspartate aminotransferase and PT/INR * Dr. Denson, psychiatry consult scheduled for today * 1:1 nursing care with suicide precautions * Nausea and vomiting has now resolved Plan * Admit to floor with one-on-one nursing * N-acetylcysteine 3 bag protocol given. First bag, started in the emergency department, 150 mg/kg over 1 hour, second bag 50 mg/kg over 4 hours, third bag 100 mg/kg over 16 hours. Poison control now recommending another bag. * Recheck labs as suggested by poison control * If INR is greater than 1.3 or acetaminophen is greater than 10 then repeat bag 3. * Reglan and ondansetron for nausea and vomiting * Consult Dr. Denson and psychiatry * VTE prophylaxis not indicated * CODE STATUS: Full code * Length of stay will be dependent on recommendations from Dr. Denson.
[2019-12-19] MEDS ORDERED: Magnesium Sulfate/Water 4 GM in Premix Bag 1 BAG IV ONE (08:59)
[2019-12-19] MEDS ORDERED: Magnesium Sulfate/Water 2 GM in Premix Bag 1 BAG IV ONE (09:00)
[2019-12-19] MEDS: Topiramate 25 MG Tab PO SCH (10:50)
[2019-12-19] MEDS: Remove Patch*NICOTINE TRDERM SCH (10:50)
[2019-12-19] MEDS: Nicotine 21 MG/24 Hr Patch TRDERM SCH (10:51)
[2019-12-19] MEDS: Dextrose 5%-0.45% NaCl 1,000 ML IV SCH (10:56)
[2019-12-19] MEDS: Potassium Chloride 10 MEQ in Premix Bag 1 BAG IV SCH ×4 (11:18→14:27)
--- NOTE | 2019-12-19 11:50 | PCM.DCSUM1 ---
Discharge Summary - Hospital Course HPI Initial Comments: 24-year-old male was brought in by [place] ambulance service after taking approximately 10-15 acetaminophen tablets. Patient's girlfriend was going to leave him so he took "too much Tylenol." When I asked him directly if he wanted to kill himself he said "at the time I took it I did ", but he does not want to now. Patient states he has been depressed recently. He told the emergency room physician that when he got in a fight with his girlfriend he was trying to be traumatic and thought he took ibuprofen, because he knows it will not kill you just give you an upset stomach. He did something like this 6 months ago. Patient is not on any medication and states he would not take medication for depression if prescribed. Patient states he started vomiting at approximately 1300 hrs. He also complains of abdominal pain. Diagnosis: Stroke: No - Discharge Data Discharge Date: 12/19/19 (Admit date: 12/16/19) Discharge Disposition: Home, Self-Care 01 Condition: Good - Referral to Home Health Primary Care Physician: PCP None - Discharge Diagnosis/Problem(s) (1) Suicide attempt by acetaminophen overdose SNOMED Code(s): 595916017, 724479897 ICD Code: T39.1X2A - POISONING BY 4-AMINOPHENOL DERIVATIVES, SELF-HARM, INIT Status: Acute Priority: High Current Visit: Yes Qualifiers: Encounter type: initial encounter Qualified Code(s): T39.1X2A - Poisoning by 4-Aminophenol derivatives, intentional self-harm, initial encounter (2) Acetaminophen overdose SNOMED Code(s): 707337728 ICD Code: T39.1X1A - POISONING BY 4-AMINOPHENOL DERIVATIVES, ACCIDENTAL, INIT Status: Acute Priority: High Current Visit: Yes Qualifiers: Encounter type: initial encounter Injury intent: intentional self-harm Qualified Code(s): T39.1X2A - Poisoning by 4-Aminophenol derivatives, intentional self-harm, initial encounter (3) Elevated INR SNOMED Code(s): 335289535 ICD Code: R79.1 - ABNORMAL COAGULATION PROFILE Status: Acute Priority: High Current Visit: Yes (4) Transaminitis SNOMED Code(s): 208188733, 090705094 ICD Code: R74.0 - NONSPEC ELEV OF LEVELS OF TRANSAMNS & LACTIC ACID DEHYDRGNSE Status: Acute Priority: High Current Visit: Yes - Patient Summary/Data Consults: Consultations 12/16/19 20:05 Consult to Physician [CONS] Routine 12/17/19 19:24 Consult to Case Management/Care Trainer [CONS] Routine 12/18/19 12:07 Consult to Spiritual Care [CONS] Routine Labs Pending at D/C: None Recommended Follow-up Testing/Procedures: Follow-up with PCP within 3-5 days of discharge. -Recommend re-check CMP and magnesium at that appointment. Hospital Course: Luis Enrique was noted to the medical floor after a suicide attempt in which the patient took Tylenol after a fight with his girlfriend. Placed on suicide precautions with one-to-one nursing. He was started in the emergency room on N- acetylcysteine IV and this continued on the floor. Poison control was contacted initially in the emergency room and did follow the patient during his stay. He received IV fluids. His potassium and magnesium were low and were both supplemented. Dr. Denson, tele-psychiatry, did see the patient and reported that he feels the patient has bipolar disorder. He does not feel the patient is actively suicidal at this point and the patient agrees that while he initially attempted to end his life by taking the Tylenol, he is no longer actively suicidal. Patient was started on 25 mg every morning Tylenol for a total of 7 days and then he is to increase his dosing to the milligram every morning from then on. He noted that if the patient has breakthrough symptoms he can be started on antidepressant as well. He recommended sobriety and pastoral guidance. He will follow-up with the patient outpatient upon discharge. Liver enzymes did eventually trend downward. Poison control agreed patient was cleared for discharge upon this lab finding. Recommend he follow- up with an outpatient provider within 3 to 5 days of discharge. He does not have a provider currently and case management will assist in finding him one. Recommend repeat CMP and magnesium at that time. He was discharged today. He was instructed to contact psychiatry, his primary care provider, or return the emergency room should symptoms return or worsen. - Patient Instructions Diet: Usual Diet as Tolerated Activity: As Tolerated, Rest and Relax Today Driving: Do Not Drive (today ) Showering/Bathing: May Shower Notify Provider of: Fever, Increased Pain, Nausea and/or Vomiting Other/Special Instructions: Establish with a primary care provider within 3-4 days of discharge. Recommend re-check CMP and magensium at that visit. Follow- up with Dr. Denson, psychiatry as scheduled. Take all new medications as prescribed. Topiramax will be 25mg until 12/24, and then should increase to 50mg at that time. Recommend sobriety. We discussed your smoking status and you indicated you do not want nicotine patches. You were provided resources such as [employer] and the [facility] line numbers for smoking cessation aids. Your primary care provider is another excellent resource, should you change your mind. Should symtpoms return or worsen, contact primary care provider or return to the Emergency Department. - Discharge Plan *PRESCRIPTION DRUG MONITORING PROGRAM REVIEWED*: No *COPY OF PRESCRIPTION DRUG MONITORING REPORT IN PATIENT NELIDA: No Prescriptions/Med Rec: Topiramate [Topamax] 50 mg PO DAILY #5 tablet Topiramate [Topamax] 25 mg PO DAILY 5 Days #5 tablet Home Medications: Home Meds Topiramate [Topamax] 25 mg PO DAILY 5 Days #5 tablet 12/19/19 [Rx] Topiramate [Topamax] 50 mg PO DAILY #5 tablet 12/19/19 [Rx] Oxygen Therapy Mode: Room Air Patient Handouts: What You Need to Know About Electronic Cigarettes, Smokeless Tobacco Information, Adult Forms: ED Department Discharge Referrals: Severiano Denson MD [Physician] - 01/09/20 10:00 am (Please arrive on the [place] of the hospital clinic for appt. in [facility], if you need to change appt. time please call [phone]. Appt. times is 10 a.m. [place] time.) - Discharge Summary/Plan Comment DC Time >30 min.: Yes (45 mins ) - General Info Date of Service: 12/19/19 Functional Status: Reports: Pain Controlled, Tolerating Diet, Ambulating, Urinating. Denies: New Symptoms - Review of Systems General: Reports: No Symptoms. Denies: Fever, Weakness, Fatigue, Malaise, Chills HEENT: Reports: No Symptoms. Denies: Headaches, Sore Throat Pulmonary: Reports: No Symptoms. Denies: Shortness of Breath, Pleuritic Chest Pain, Cough, Sputum, Wheezing Cardiovascular: Reports: No Symptoms. Denies: Chest Pain, Palpitations, Edema Gastrointestinal: Reports: No Symptoms. Denies: Abdominal Pain, Constipation, Diarrhea, Nausea, Vomiting Genitourinary: Reports: No Symptoms. Denies: Pain Musculoskeletal: Reports: No Symptoms Skin: Reports: No Symptoms. Denies: Cyanosis Neurological: Reports: No Symptoms. Denies: Confusion, Difficulty Walking, Weakness, Gait Disturbance Psychiatric: Reports: No Symptoms - Patient Data Vitals - Most Recent: Last Vital Signs Temp 97.9 F 12/19/19 07:54 Pulse 51 L 12/19/19 07:54 Resp 16 12/19/19 07:54 BP 131/74 12/19/19 07:54 Pulse Ox 97 12/19/19 07:54 Weight - Most Recent: 153 lb 4 oz I&O - Last 24 hours: Intake & Output 12/18/19 12/19/19 12/19/19 22:59 06:59 14:59 Intake Total 2810 2237 120 Output Total 2150 1600 Balance 660 637 120 Lab Results - Last 24 hrs: Laboratory Results - last 24 hr 12/18/19 12/18/19 12/19/19 Range/Units 23:54 23:54 07:55 PT 13.6 H 13.5 H (9.7-12.0) SECONDS INR 1.26 1.25 Sodium 141 (136-145) mEq/L Potassium 3.5 (3.5-5.1) mEq/L Chloride 108 H (98-107) mEq/L Carbon Dioxide 25 (21-32) mEq/L Anion Gap 11.5 (5-15) BUN 4 L (7-18) mg/dL Creatinine 0.9 (0.7-1.3) mg/dL Est Cr Clr Drug Dosing 123.50 mL/min Estimated GFR (MDRD) > 60 (>60) mL/min BUN/Creatinine Ratio 4.4 L (14-18) Glucose 110 H (74-106) mg/dL Calcium 8.5 (8.5-10.1) mg/dL Magnesium (1.8-2.4) mg/dl Total Bilirubin 0.9 (0.2-1.0) mg/dL AST 87 H (15-37) U/L ALT 228 H (16-63) U/L Alkaline Phosphatase 44 L (46-116) U/L Total Protein 6.1 L (6.4-8.2) g/dl Albumin 3.0 L (3.4-5.0) g/dl Globulin 3.1 gm/dL Albumin/Globulin Ratio 1.0 (1-2) 12/19/19 Range/Units 07:55 PT (9.7-12.0) SECONDS INR Sodium 144 (136-145) mEq/L Potassium 3.3 L (3.5-5.1) mEq/L Chloride 108 H (98-107) mEq/L Carbon Dioxide 24 (21-32) mEq/L Anion Gap 15.3 H (5-15) BUN 5 L (7-18) mg/dL Creatinine 0.8 (0.7-1.3) mg/dL Est Cr Clr Drug Dosing 139.99 mL/min Estimated GFR (MDRD) > 60 (>60) mL/min BUN/Creatinine Ratio 6.3 L (14-18) Glucose 100 (74-106) mg/dL Calcium 8.3 L (8.5-10.1) mg/dL Magnesium 1.3 L (1.8-2.4) mg/dl Total Bilirubin 1.1 H (0.2-1.0) mg/dL AST 64 H (15-37) U/L ALT 223 H (16-63) U/L Alkaline Phosphatase 42 L (46-116) U/L Total Protein 6.2 L (6.4-8.2) g/dl Albumin 3.3 L (3.4-5.0) g/dl Globulin 2.9 gm/dL Albumin/Globulin Ratio 1.1 (1-2) Med Orders - Current: Current Medications Dextrose/Sodium Chloride (Dextrose 5%-1/2 Ns) 1,000 mls @ 100 mls/hr IV ASDIRECTED [facility] Last Admin: 12/19/19 10:56 Dose: 100 mls/hr Acetylcysteine 6,800 mg/ (Sodium Chloride) 1,034 mls @ 64.625 mls/hr IV ONETIME ONE Stop: 12/19/19 17:14 Last Admin: 12/19/19 01:31 Dose: 64.625 mls/hr Potassium Chloride 10 meq/ (Premix) 100 mls @ 100 mls/hr IV Q1H [facility] Stop: 12/19/19 13:14 Last Admin: 12/19/19 11:18 Dose: 100 mls/hr Metoclopramide HCl (Reglan) 10 mg IVPUSH Q6H PRN PRN Reason: Nausea/Vomiting Last Admin: 12/18/19 18:13 Dose: 10 mg Miscellaneous Information (Remove Patch) 1 ea TRDERM DAILY [facility] Last Admin: 12/19/19 10:50 Dose: Not Given Nicotine (Habitrol) 21 mg TRDERM DAILY [facility] Last Admin: 12/19/19 10:51 Dose: Not Given Ondansetron HCl (Zofran) 4 mg IVPUSH Q6H PRN PRN Reason: Nausea/Vomiting Sodium Chloride (Saline Flush) 10 ml FLUSH ASDIRECTED PRN PRN Reason: Keep Vein Open Last Admin: 12/16/19 14:20 Dose: 10 ml Topiramate (Topamax) 25 mg PO DAILY [facility] Stop: 12/24/19 09:01 Last Admin: 12/19/19 10:50 Dose: 25 mg Topiramate (Topamax) 50 mg PO DAILY [facility] Discontinued Medications Acetylcysteine (Acetadote 20%) 10,200 mg IV ONETIME ONE Stop: 12/16/19 17:04 Acetylcysteine (Mucomyst 20%) 9,520 mg PO ONETIME ONE Stop: 12/16/19 17:06 Last Admin: 12/16/19 19:00 Dose: Not Given Acetylcysteine (Acetadote 20%) 10,200 mg IV ONETIME ONE Stop: 12/16/19 18:30 Acetylcysteine (Acetadote 20%) 6,800 mg IV ONETIME ONE Stop: 12/17/19 16:08 Lactated Ringer's (Ringers, Lactated) 1,000 mls @ 1,000 mls/hr IV .BOLUS ONE Stop: 12/16/19 15:01 Last Admin: 12/16/19 14:19 Dose: 1,000 mls/hr Acetylcysteine 10,200 mg/ (Sodium Chloride) 251 mls @ 251 mls/hr IV ONETIME ONE Stop: 12/16/19 19:44 Last Admin: 12/16/19 19:01 Dose: 251 mls/hr Acetylcysteine 3,400 mg/ (Sodium Chloride) 517 mls @ 129.25 mls/hr IV ONETIME ONE Stop: 12/17/19 00:14 Last Admin: 12/16/19 20:54 Dose: 129.25 mls/hr Acetylcysteine 6,800 mg/ (Sodium Chloride) 1,034 mls @ 64.625 mls/hr IV ONETIME ONE Stop: 12/17/19 16:14 Last Admin: 12/17/19 00:45 Dose: 64.625 mls/hr Acetylcysteine 6,800 mg/ (Sodium Chloride) 1,034 mls @ 64.625 mls/hr IV ONETIME ONE Stop: 12/18/19 08:29 Last Admin: 12/17/19 17:48 Dose: 64.625 mls/hr Acetylcysteine 6,800 mg/ (Sodium Chloride) 1,034 mls @ 64.625 mls/hr IV ONETIME ONE Stop: 12/19/19 00:29 Last Admin: 12/18/19 10:10 Dose: 64.625 mls/hr Magnesium Sulfate 4 gm/ Premix 50 mls @ 12.5 mls/hr IV ONETIME ONE Stop: 12/19/19 12:58 Magnesium Sulfate 2 gm/ Premix 50 mls @ 25 mls/hr IV ONETIME ONE Stop: 12/19/19 10:59 Last Admin: 12/19/19 10:38 Dose: 25 mls/hr Metoclopramide HCl (Reglan) 10 mg IVPUSH ONETIME ONE Stop: 12/16/19 14:14 Last Admin: 12/16/19 14:19 Dose: 10 mg Ondansetron HCl (Zofran Odt) 4 mg PO ONETIME ONE Stop: 12/16/19 13:13 Last Admin: 12/16/19 13:17 Dose: 4 mg Ondansetron HCl (Zofran) 4 mg IVPUSH ONETIME ONE Stop: 12/16/19 18:06 Last Admin: 12/16/19 18:14 Dose: 4 mg Ondansetron HCl (Zofran) 4 mg IV Q4H PRN PRN Reason: Nausea/Vomiting Last Admin: 12/18/19 23:07 Dose: 4 mg Potassium Chloride (Klor-Con M20) 40 meq PO ONETIME ONE Stop: 12/18/19 14:55 Last Admin: 12/18/19 16:40 Dose: 40 meq - Exam Quality Assessment: Reports: DVT Prophylaxis. Denies: Supplemental Oxygen, Urine Catheter General: Reports: Alert, Oriented. Denies: Cooperative, No Acute Distress HEENT: Reports: Pupils Reactive, Mucous Membr. Moist/[place]. Denies: Pupils Equal Neck: Reports: Supple, Trachea Midline Lungs: Reports: Clear to Auscultation, Normal Respiratory Effort Cardiovascular: Reports: Regular Rate, Regular Rhythm GI/Abdominal Exam: Normal Bowel Sounds, Soft, Non-Tender, No Distention, No Abnormal Bruit (Male) Exam: Deferred Rectal (Males) Exam: Deferred Back Exam: Reports: Normal Inspection, Full Range of Motion Extremities: Normal Inspection, Normal Range of Motion, Non-Tender, No Pedal Edema, Normal Capillary Refill Skin: Reports: Warm, Dry, Intact Neurological: Reports: No New Focal Deficit Psy/Mental Status: Reports: Alert, Normal Affect, Normal Mood. Denies: Agitated , Suicidal Ideation, Homicidal Ideation, Hallucinations, Withdrawal Symptoms
--- NOTE | 2019-12-21 18:48 | PCM.PN ---
- General Info Date of Service: 12/17/19 Subjective Update: Pt. is no longer nauseated. Improved appetite. Functional Status: Reports: Pain Controlled - Review of Systems General: Reports: No Symptoms HEENT: Reports: No Symptoms Pulmonary: Reports: No Symptoms Cardiovascular: Reports: No Symptoms Gastrointestinal: Reports: No Symptoms Musculoskeletal: Reports: No Symptoms Neurological: Reports: No Symptoms - Patient Data Vitals - Most Recent: Last Vital Signs Temp 98.1 F 12/19/19 11:50 Pulse 49 L 12/19/19 11:50 Resp 16 12/19/19 11:50 BP 127/63 12/19/19 11:50 Pulse Ox 98 12/19/19 11:50 Weight - Most Recent: 153 lb 4 oz Med Orders - Current: Current Medications Discontinued Medications Acetylcysteine (Acetadote 20%) 10,200 mg IV ONETIME ONE Stop: 12/16/19 17:04 Acetylcysteine (Mucomyst 20%) 9,520 mg PO ONETIME ONE Stop: 12/16/19 17:06 Last Admin: 12/16/19 19:00 Dose: Not Given Acetylcysteine (Acetadote 20%) 10,200 mg IV ONETIME ONE Stop: 12/16/19 18:30 Acetylcysteine (Acetadote 20%) 6,800 mg IV ONETIME ONE Stop: 12/17/19 16:08 Lactated Ringer's (Ringers, Lactated) 1,000 mls @ 1,000 mls/hr IV .BOLUS ONE Stop: 12/16/19 15:01 Last Admin: 12/16/19 14:19 Dose: 1,000 mls/hr Acetylcysteine 10,200 mg/ (Sodium Chloride) 251 mls @ 251 mls/hr IV ONETIME ONE Stop: 12/16/19 19:44 Last Admin: 12/16/19 19:01 Dose: 251 mls/hr Acetylcysteine 3,400 mg/ (Sodium Chloride) 517 mls @ 129.25 mls/hr IV ONETIME ONE Stop: 12/17/19 00:14 Last Admin: 12/16/19 20:54 Dose: 129.25 mls/hr Acetylcysteine 6,800 mg/ (Sodium Chloride) 1,034 mls @ 64.625 mls/hr IV ONETIME ONE Stop: 12/17/19 16:14 Last Admin: 12/17/19 00:45 Dose: 64.625 mls/hr Dextrose/Sodium Chloride (Dextrose 5%-1/2 Ns) 1,000 mls @ 100 mls/hr IV ASDIRECTED [facility] Last Admin: 12/19/19 10:56 Dose: 100 mls/hr Acetylcysteine 6,800 mg/ (Sodium Chloride) 1,034 mls @ 64.625 mls/hr IV ONETIME ONE Stop: 12/18/19 08:29 Last Admin: 12/17/19 17:48 Dose: 64.625 mls/hr Acetylcysteine 6,800 mg/ (Sodium Chloride) 1,034 mls @ 64.625 mls/hr IV ONETIME ONE Stop: 12/19/19 00:29 Last Admin: 12/18/19 10:10 Dose: 64.625 mls/hr Acetylcysteine 6,800 mg/ (Sodium Chloride) 1,034 mls @ 64.625 mls/hr IV ONETIME ONE Stop: 12/19/19 17:14 Last Admin: 12/19/19 01:31 Dose: 64.625 mls/hr Magnesium Sulfate 4 gm/ Premix 50 mls @ 12.5 mls/hr IV ONETIME ONE Stop: 12/19/19 12:58 Magnesium Sulfate 2 gm/ Premix 50 mls @ 25 mls/hr IV ONETIME ONE Stop: 12/19/19 10:59 Last Admin: 12/19/19 10:38 Dose: 25 mls/hr Potassium Chloride 10 meq/ (Premix) 100 mls @ 100 mls/hr IV Q1H [facility] Stop: 12/19/19 13:14 Last Admin: 12/19/19 14:27 Dose: 100 mls/hr Metoclopramide HCl (Reglan) 10 mg IVPUSH ONETIME ONE Stop: 12/16/19 14:14 Last Admin: 12/16/19 14:19 Dose: 10 mg Metoclopramide HCl (Reglan) 10 mg IVPUSH Q6H PRN PRN Reason: Nausea/Vomiting Last Admin: 12/18/19 18:13 Dose: 10 mg Miscellaneous Information (Remove Patch) 1 ea TRDERM DAILY [facility] Last Admin: 12/19/19 10:50 Dose: Not Given Nicotine (Habitrol) 21 mg TRDERM DAILY [facility] Last Admin: 12/19/19 10:51 Dose: Not Given Ondansetron HCl (Zofran Odt) 4 mg PO ONETIME ONE Stop: 12/16/19 13:13 Last Admin: 12/16/19 13:17 Dose: 4 mg Ondansetron HCl (Zofran) 4 mg IVPUSH ONETIME ONE Stop: 12/16/19 18:06 Last Admin: 12/16/19 18:14 Dose: 4 mg Ondansetron HCl (Zofran) 4 mg IV Q4H PRN PRN Reason: Nausea/Vomiting Last Admin: 12/18/19 23:07 Dose: 4 mg Ondansetron HCl (Zofran) 4 mg IVPUSH Q6H PRN PRN Reason: Nausea/Vomiting Potassium Chloride (Klor-Con M20) 40 meq PO ONETIME ONE Stop: 12/18/19 14:55 Last Admin: 12/18/19 16:40 Dose: 40 meq Sodium Chloride (Saline Flush) 10 ml FLUSH ASDIRECTED PRN PRN Reason: Keep Vein Open Last Admin: 12/16/19 14:20 Dose: 10 ml Topiramate (Topamax) 25 mg PO DAILY [facility] Stop: 12/24/19 09:01 Last Admin: 12/19/19 10:50 Dose: 25 mg Topiramate (Topamax) 50 mg PO DAILY [facility] - Exam General: Alert, Oriented HEENT: Pupils Equal, Mucous Membr. Moist/[place] Neck: Supple Lungs: Clear to Auscultation, Normal Respiratory Effort Cardiovascular: Regular Rate, Regular Rhythm GI/Abdominal Exam: Normal Bowel Sounds, Soft, Non-Tender, No Organomegaly, No Distention, No Abnormal Bruit, No Mass Extremities: Normal Inspection, Non-Tender, No Pedal Edema, Normal Capillary Refill Skin: Warm, Dry, Intact Psy/Mental Status: Alert, Normal Affect, Normal Mood Sepsis Event Note - Evaluation Sepsis Screening Result: No Definite Risk - Problem List Review Problem List Initiated/Reviewed/Updated: Yes - Plan Plan:: Naus Assessment 24-year-old male with acetaminophen overdose and toxicity * Patient reports he took 10-15 acetaminophen tablets * Acetaminophen level 334 on arrival and 4 hours later 258 * Normal LFTs: AST 12, ALT 29, alkaline phosphatase 57, total bilirubin 0.6, INR 1.06 * Poison control contacted N-acetylcysteine * N-acetylcysteine 150 mg/kg over 1 hour started in the emergency department. Total dose 10,200 mg * Patient stated that at the time he took the pills he wanted to * Urine drug screen positive for marijuana Abdominal pain and nausea and vomiting * Patient states he developed nausea and vomiting about an hour after taking the acetaminophen Suicide attempt * Patient admitted to [facility], but not the emergency room physician at the time he took the acetaminophen he wanted to * Patient states he does not want to now. * States he has been depressed lately Day 1 * ALT increased * Nausea improved * Poison control recommends repeating 3rd bag of N-acetylcysteine and rechecking liver enzymes at midnight. Plan * Admit to floor with one-on-one nursing * Repeat 3rd bag N-acetylcysteine 3 bag protocol. Third bag 100 mg/kg over 16 hours. * Recheck LFTs, INR, level at midnight. * Reglan and ondansetron for nausea and vomiting * Consult Dr. Denson and psychiatry * VTE prophylaxis not indicated * CODE STATUS: Full code * Length of stay will be dependent on recommendations from Dr. Denson.
[2019-12-25] MEDS ORDERED: Topiramate 25 MG Tab PO SCH (09:00)
== END 2019-12-19 15:53 | disposition home or self-care (01) | DRG 918 ==
LOC: JD.ED 12:52 → JD.MS 19:23
PROVIDERS: ADMIT Family Medicine; ATTEND Family Medicine
DX: T39.1X2A Poisoning by 4-Aminophenol derivatives, intentional self-harm, initial encounter (principal); F17.200 Nicotine dependence, unspecified, uncomplicated; F31.9 Bipolar disorder, unspecified; F41.9 Anxiety disorder, unspecified
CPT/HCPCS: 36415; 80053; 80076; 80306; 80307; 83735; 84443; 84484; 85025; 85610; 85730; 93005; 93010; 96361; 96365; 96375; 99284; 99285-25; A9270-GY; J0132; J2405; J2765; J3475; J3480; J7030; J7040; J7042; J7050; J7120; Q3014

== ENCOUNTER 2020-11-04 09:54 | Emergency (ER) | payer BC ==
--- NOTE | 2020-11-04 10:30 | EDM.PDOC ---
ED HPI GENERAL MEDICAL PROBLEM - General Chief Complaint: Abdominal Pain Stated Complaint: STOMACH PAIN/VOMITING Time Seen by Provider: 11/04/20 10:28 - History of Present Illness INITIAL COMMENTS - FREE TEXT/NARRATIVE: 25-year-old male presents the emergency room with abdominal pain. This pain has been going on for 2 days now. He describes it as a generalized abdominal ache the kind usually get if he did not eat. He is felt feverish chilled at times. He has not had any burning or frequency with urination he has had an upset stomach but no vomiting. No prior history of abdominal surgeries he is passing gas. Abdomen Pain Score (Numeric/FACES): 10 - Related Data Allergies Allergy/AdvReac Type Severity Reaction Status Date / Time No Known Allergies Allergy Verified 11/04/20 10:02 Home Meds: Home Meds Ondansetron [Zofran ODT] 4 mg PO ASDIRECTED PRN #8 tab.dis 11/04/20 [Rx] Past Medical History - Past Health History Medical/Surgical History: Denies Medical/Surgical History Psychiatric History: Reports: Depression - Past Surgical History Male Surgical History: Reports: Circumcision Social & Family History - Family History Family Medical History: No Pertinent Family History - Tobacco Use Tobacco Use Status *Q: Current Every Day Tobacco User Years of Tobacco use: 1 Packs/Tins Daily: 1 - Caffeine Use Caffeine Use: Reports: Coffee, Energy Drinks, Soda - Recreational Drug Use Recreational Drug Type: Reports: Marijuana/Hashish ED ROS GENERAL - Review of Systems Review Of Systems: See Below Constitutional: Reports: Fever, Chills HEENT: Reports: No Symptoms Respiratory: Reports: No Symptoms Cardiovascular: Reports: No Symptoms GI/Abdominal: Reports: Abdominal Pain, Nausea. Denies: Constipation, Diarrhea, Vomiting : Reports: No Symptoms Musculoskeletal: Reports: No Symptoms Skin: Reports: No Symptoms ED EXAM, GI/ABD - Physical Exam Exam: See Below Exam Limited By: No Limitations General Appearance: Alert, No Apparent Distress Head: Atraumatic, Normocephalic Neck: Normal Inspection, Supple, Non-Tender, Full Range of Motion Respiratory/Chest: No Respiratory Distress, Lungs Clear, Normal Breath Sounds Cardiovascular: No Edema, No Murmur, Bradycardia (His pulse rate is in the 40s. He was seen here little less than a year ago and his pulse rate was in the 40s.) GI/Abdominal Exam: Normal Bowel Sounds, Soft, Tender (The patient has marked right lower quadrant tenderness. However no rigidity rebound or guarding noted .) Back Exam: Normal Inspection. No: CVA Tenderness (L), CVA Tenderness (R) Extremities: Normal Inspection, No Pedal Edema Neurological: Alert, Oriented, Normal Cognition #1 Interpretation EKG Date: 11/04/20 Rhythm: Other (Sinus bradycardia) Rate (Beats/Min): 42 [place]: Normal P-Wave: Present QRS: Normal ST-T: Normal QT: Normal Comparison: No Change (No significant change from EKG noted on 12/16/2019) EKG Interpretation Comments: Sinus bradycardia Course - Vital Signs Last Recorded V/S: Last Vital Signs Temp 37.0 C 11/04/20 10:05 Pulse 42 L 11/04/20 10:05 Resp 20 11/04/20 10:05 BP 131/75 11/04/20 10:05 Pulse Ox 97 11/04/20 10:05 - Orders/Labs/Meds Labs: Laboratory Tests 11/04/20 11/04/20 11/04/20 Range/Units 10:10 10:10 10:40 WBC 15.21 H (4.23-9.07) K/mm3 RBC 5.46 (4.63-6.08) M/mm3 Hgb 15.8 (13.7-17.5) gm/dl Hct 45.1 (40.1-51.0) % MCV 82.6 (79.0-92.2) fl MCH 28.9 (25.7-32.2) pg MCHC 35.0 (32.2-35.5) g/dl RDW Std Deviation 39.8 (35.1-43.9) fL Plt Count 205 (163-337) K/mm3 MPV 10.6 (9.4-12.3) fl Neut % (Auto) 90.2 H (34.0-67.9) % Lymph % (Auto) 5.7 L (21.8-53.1) % [place] % (Auto) 3.9 L (5.3-12.2) % Eos % (Auto) 0 L (0.8-7.0) Baso % (Auto) 0.1 (0.1-1.2) % Neut # (Auto) 13.71 H (1.78-5.38) K/mm3 Lymph # (Auto) 0.87 L (1.32-3.57) K/mm3 [place] # (Auto) 0.59 (0.30-0.82) K/mm3 Eos # (Auto) 0.00 L (0.04-0.54) K/mm3 Baso # (Auto) 0.02 (0.01-0.08) K/mm3 Manual Slide Review Abnormal smear Sodium 142 (136-145) mEq/L Potassium 3.8 (3.5-5.1) mEq/L Chloride 103 (98-107) mEq/L Carbon Dioxide 25 (21-32) mEq/L Anion Gap 17.8 H (5-15) BUN 13 (7-18) mg/dL Creatinine 0.9 (0.7-1.3) mg/dL Est Cr Clr Drug Dosing 121.71 mL/min Estimated GFR (MDRD) > 60 (>60) mL/min BUN/Creatinine Ratio 14.4 (14-18) Glucose 119 H (74-106) mg/dL Calcium 9.3 (8.5-10.1) mg/dL Total Bilirubin 0.8 (0.2-1.0) mg/dL AST 303 H (15-37) U/L ALT 122 H (16-63) U/L Alkaline Phosphatase 52 (46-116) U/L C-Reactive Protein 3.1 H* (<1.0) mg/dL Total Protein 8.0 (6.4-8.2) g/dl Albumin 4.2 (3.4-5.0) g/dl Globulin 3.8 gm/dL Albumin/Globulin Ratio 1.1 (1-2) Lipase 56 L (73-393) U/L Urine Color [place] H (Yellow) Urine Appearance Clear (Clear) Urine pH 6.0 (5.0-8.0) Ur Specific Ider > or = 1.030 (1.005-1.030) Urine Protein 2+ H (Negative) Urine Glucose (UA) Negative (Negative) Urine Ketones 3+ H (Negative) Urine Occult Blood 3+ H (Negative) Urine Nitrite Negative (Negative) Urine Bilirubin 1+ H (Negative) Urine Urobilinogen 0.2 (0.2-1.0) Ur Leukocyte Esterase Negative (Negative) Urine RBC 10-20 H (0-5) /hpf Urine WBC 0-5 (0-5) /hpf Ur Squamous Epith Cells 0-5 (0-5) /hpf Urine Bacteria Few (FEW) /hpf Urine Mucus Many H (FEW) /hpf Meds: Medications Discontinued Medications Generic Name Dose Route Start Last Admin Trade Name Jeison PRN Reason Stop Dose Admin Lactated Ringer's 1,000 mls @ 999 mls/hr 11/04/20 10:38 11/04/20 10:45 Ringers, Lactated IV 11/04/20 11:38 999 mls/hr .BOLUS ONE Administration Ondansetron HCl 4 mg 11/04/20 10:38 11/04/20 10:43 Zofran IVPUSH 11/04/20 10:39 4 mg ONETIME ONE Administration - Re-Assessments/Exams Free Text/Narrative Re-Assessment/Exam: 11/04/20 10:43 Abs ordered we will start IV fluids try some Zofran. Of note is the patient's pulse rate is usually the 40s sometimes in the upper 30s he does not seem to have any complaints with this no dizziness no lightheadedness. Reviewed his EKG from his last admission little less than a year ago and his rate was in the 40s. 11/04/20 12:17 White count is somewhat increased his C-reactive protein is mildly elevated. Repeat abdominal exam shows active bowel sounds no rigidity rebound or guarding he still has some pretty significant right lower quadrant pain now the patient is volunteering that he has not had a BM in a couple of days and is wondering if this could be constipation I have advised the patient constipation usually does not cause an elevation in C-reactive protein white count and does not cause fevers and chills. I offered the patient a CAT scan to further evaluate his right lower quadrant pain and he declines this at this point. He would like to be released and he agrees to return in 24 hours if not improving sooner if getting worse. The patient had a problem with Tylenol ingestion in the past and he absolutely declines using Tylenol for discomfort. I had ordered a drug screen Tylenol and salicylates levels as the patient skin to be going home I canceled these. Departure - Departure Time of Disposition: 12:19 Disposition: Home, Self-Care 01 Clinical Impression: Abdominal pain of unknown etiology - Discharge Information Prescriptions: Ondansetron [Zofran ODT] 4 mg PO ASDIRECTED PRN #8 tab.dis PRN Reason: Nausea/Vomiting Instructions: Abdominal Pain, Adult, [id number] Referrals: PCP,None [Primary Care Provider] - Forms: ED Department Discharge Additional Instructions: Return to the emergency room with any questions problems or worsening symptoms. Return in 24 hours if not better sooner if getting worse. I have sent a prescription to [facility] for Zofran this is an antinausea medication take 1 every 4-6 hours as needed. Clear liquid diet for the next 24 hours slowly advance after 24 hours if better. Follow-up in the hospital clinic, if you are improving, in 2 days for recheck. Their phone number is [phone] Sepsis Event Note (ED) - Evaluation Sepsis Screening Result: No Definite Risk
[2020-11-04] MEDS ORDERED: Lactated Ringers 1,000 ML IV ONE (10:38)
[2020-11-04] MEDS ORDERED: Ondansetron 4 MG/2 ML SDV IVPUSH ONE (10:38)
== END 2020-11-04 12:31 | disposition home or self-care (01) ==
LOC: JD.ED 09:54
DX: R10.84 Generalized abdominal pain (principal); Z72.0 Tobacco use
CPT/HCPCS: 36415; 80053; 81001; 83690; 85025; 86140; 93005; 96374; 99284; J2405; J7120; 93010

== ENCOUNTER 2022-04-14 03:39 | Emergency (ER) | payer SELFPAY ==
[2022-04-14] MEDS ORDERED: Ketorolac 15 MG/ML SDV IM STA (04:00)
[2022-04-14] MEDS ORDERED: Acetaminophen 325 MG Tab PO ONE (04:00)
== END 2022-04-14 05:24 | disposition home or self-care (01) ==
LOC: JD.ED 03:39
DX: U07.1 COVID-19 (principal); F17.210 Nicotine dependence, cigarettes, uncomplicated; Z28.310 Unvaccinated for COVID-19
CPT/HCPCS: 81001; 87635; 96372; 99283; A9270; J1885; 99282; U0002

== ENCOUNTER 2024-07-16 17:42 | Emergency (ER) | payer SELFPAY ==
[2024-07-16 18:25] LABS: BASOPHILS PERCENT AUTO 0.7 % (0.0-1.0); EOSINOPHILS PERCENT AUTO 0.7 % (0.0-6.0); HEMATOCRIT 41.3 % (42.0-52.0); HEMOGLOBIN 14.7 gm/dl (14.0-18.0); IMMATURE GRAN ABSOLUTE AUTO 0.01 K/mm3 (0.00-0.05); IMMATURE GRAN PERCENT AUTO 0.2 % (0.0-0.4); LYMPHOCYTES ABSOLUTE AUTO 1.9 K/mm3 (1.0-4.8); LYMPHOCYTES PERCENT AUTO 33.2 % (24.0-44.0); MEAN CORPUSCULAR HEMOGLOBIN 30.7 pg (28.0-32.0); MEAN CORPUSCULAR HGB CONC 35.6 g/dl (32.0-36.0); MEAN CORPUSCULAR VOLUME 86.2 fl (83.0-99.0); MEAN PLATELET VOLUME 10.1 fl (9.4-12.4); MONOCYTES ABSOLUTE AUTO 0.5 K/mm3 (0.0-0.8); MONOCYTES PERCENT AUTO 8.2 % (0.0-8.0); NEUTROPHILS ABSOLUTE AUTO 3.2 K/mm3 (1.8-7.7); PLATELET COUNT,PLT 206 K/mm3 (150-400); RED BLOOD CELL COUNT 4.79 M/mm3 (4.52-5.90)
[2024-07-16 18:44] LABS: INR 1.11; PROTHROMBIN TIME 11.7 SECONDS (9.7-12.0)
[2024-07-16 18:48] LABS: D-DIMER QUANTITATIVE < 0.19 mg/L (0.19-0.50)
[2024-07-16 18:53] LABS: A/G RATIO 1.4 (1-2); ALBUMIN 4.1 g/dl (3.4-5.0); ANION GAP 14.2 (5-15); BILIRUBIN TOTAL 0.7 mg/dL (0.2-1.0); BUN/CREATININE RATIO 3.6 (14-18); CALCIUM 8.9 mg/dL (8.5-10.1); CREATININE 1.1 mg/dL (0.7-1.3); EST CRCL DRUG DOSING (CG) 95.36 mL/min; MAGNESIUM 1.9 mg/dL (1.8-2.4); PROTEIN TOTAL,TP 7.1 g/dl (6.4-8.2)
[2024-07-16 18:57] LABS: POTASSIUM,K 3.2 mEq/L (3.5-5.1)
== END 2024-07-16 19:58 | disposition left against medical advice (07) ==
LOC: JD.ED 17:42
DX: R07.89 Other chest pain (principal); R00.1 Bradycardia, unspecified; Z79.899 Other long term (current) drug therapy
CPT/HCPCS: 36415; 71045; 71045-26; 80053; 83735; 83880; 84484; 85025; 85379; 85610; 85730; 93005; 99285